=== PATIENT | male | born 1935 | race Caucasian/White ===

== ENCOUNTER → 2020-07-07 | Outpatient (REF) | payer OTHER | LOC: M SFHCCLAY 09:46 | PROVIDERS: ATTEND Family Medicine | DX: L60.8 Other nail disorders (principal); R23.8 Other skin changes; I10 Essential (primary) hypertension ==

== ENCOUNTER → 2021-12-08 | Outpatient (REF) | payer OTHER | LOC: M SFHCDERM 17:36 | PROVIDERS: ATTEND Physician Assistant | DX: D22.5 Melanocytic nevi of trunk (principal) ==

== ENCOUNTER → 2024-12-11 | Outpatient (REF) | payer OTHER, MEDICARE | LOC: M SFHCDERM 07:32 | PROVIDERS: ATTEND Physician Assistant | DX: D48.9 Neoplasm of uncertain behavior, unspecified (principal) ==